=== PATIENT | male | born 2000 | race Caucasian/White ===

== ENCOUNTER 2025-06-12 20:49 | Emergency (ER) | payer SELFPAY ==
[2025-06-12 21:05] VITALS: BP 124/76; PULSE 85; RESP 16; TEMP 36.8; O2SAT 97
--- NOTE | 2025-06-12 23:41 | ED_ITS ---
HPI - Eye Problem General Chief complaint: Eye Problems Stated complaint: something in right eye Time Seen by Provider: 06/12/25 22:50 History of Present Illness HPI Narrative: 24-year-old male with no pertinent past medical history presenting to the emergency department with eye irritation. 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 No visual deficits. Some tearing noted. Tried to flush his eye out at home without any relief. Does not wear contacts. Was otherwise in his normal state of health. No loss of vision, no significant pain. No fever, chills or any other injuries. No history of ocular procedures or surgeries. Related Data Allergies Allergy/AdvReac Type Severity Reaction Status Date / Time No Known Allergies Allergy Verified 06/12/25 21:07 Review of Systems Review of Systems: As reviewed above in HPI Exam Narrative: GENERAL: [Well-appearing, well-nourished, and in no acute distress.] HEAD: [Normocephalic, atraumatic.] EYES: PERRLA, extraocular movements are intact, fluorescein dye stain on the right eye shows a small linear corneal abrasions superior to the pupil. Pupil is equal bilaterally, reactive to light, no tearing or signs of purulent drainage. Negative Alexandra sign. Pain relief with tetracaine application. No foreign bodies noted underneath the eyelids or in the eye. ENT: Nares clear, no rhinorrhea or epistaxis. Mucous membranes moist. NECK: Supple. CHEST: No respiratory distress HEART: No tachycardia ABDOMEN: Soft and nondistended EXTREMITIES: Normal range of motion. [No edema.] SKIN: Warm, dry, no rash. NEURO: [No focal deficits]. Alert and oriented [x3.] PSYCH: [Normal mood and affect.] Course Vital Signs Vital signs: Vital Signs Temperature 36.8 C 06/12/25 21:05 Pulse Rate 85 06/12/25 21:05 Respiratory Rate 16 06/12/25 21:05 Blood Pressure 124/76 06/12/25 21:05 Pulse Oximetry 97 06/12/25 21:05 Oxygen Delivery Room Air 06/12/25 21:05 Temperature 36.8 C 06/12/25 21:05 Pulse Rate 85 06/12/25 21:05 Respiratory Rate 16 06/12/25 21:05 Blood Pressure 124/76 06/12/25 21:05 Pulse Oximetry 97 06/12/25 21:05 Oxygen Delivery Room Air 06/12/25 21:05 MDM - Eye Problem MDM Narrative Medical decision making narrative: 24-year-old male with no pertinent past medical history presenting to the emergency department with eye irritation. 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 No visual deficits. Some tearing noted. Tried to flush his eye out at home without any relief. Does not wear contacts. Was otherwise in his normal state of health. No loss of vision, no significant pain. No fever, chills or any o ther injuries. No history of ocular procedures or surgeries. Extraocular movements are intact, fluorescein dye stain on the right eye shows a small linear corneal abrasions superior to the pupil. Pupil is equal bilaterally, reactive to light, no tearing or signs of purulent drainage. Negative Alexandra sign. Pain relief with tetracaine application. No foreign bodies noted underneath the eyelids or in the eye. Patient is hemodynamically stable and has a corneal abrasion. Tetanus status is up-to-date. Patient given moxifloxacin eyedrops and instructions on care. Safe for discharge home with regular ophthalmology follow-up and PCP follow-up. Medical Records Attestation: I reviewed the patient's medical records. Discharge Plan Discharge Clinical Impression: Corneal abrasion Patient Disposition: Home Condition: Stable Instructions: Antibiotic Form, Corneal Abrasion (DC) Additional Instructions: Use the eyedrops as prescribed. Tylenol and ibuprofen every 4-6 hours for pain control. Return with any signs of vision loss, infection, intractable fevers, worsening pain or any other issues otherwise follow-up with Ophthalmology provided. 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
[2025-06-13] MEDS: MOXIFLOXACIN HCL 0.5% 3 ML OPHTH SOLN 1 DROP RIGHT EYE (00:03)
== END 2025-06-13 01:05 | disposition home or self-care (01) ==
PROVIDERS: Emergency Provider Student in an Organized Health Care Education/Training Program
DX: S05.01XA Injury of conjunctiva and corneal abrasion without foreign body, right eye, initial encounter (principal); W22.8XXA Striking against or struck by other objects, initial encounter; Y93.H2 Activity, gardening and landscaping
CPT/HCPCS: 99283; A9270